=== PATIENT | male | born 1990 | race Caucasian/White ===

== ENCOUNTER 2019-01-11 14:44 | Emergency (ER) | payer SELFPAY ==
[2019-01-11 15:22] LABS: Albumin 4.2 g/dL (3.2-5.2); Albumin/Globulin Ratio 1.2 (1-3); BUN/Creatinine Ratio 13.3 (8-20); Calcium 9.5 mg/dL (8.6-10.3); EGFR Non-African American 122.3 (>60); Globulin 3.5 g/dL (2-4); Potassium 4.1 mmol/L (3.5-5.0); Total Bilirubin 0.7 mg/dL (0.2-1.0); Total Protein 7.7 g/dL (6.4-8.9)
[2019-01-11 15:46] LABS: ABS Lymphocytes 1.1 10^3/ul (1.0-4.8); ABS Monocytes 0.9 10^3/ul (0-0.8); ABS Neutrophils 8.7 10^3/ul (1.5-7.7); Hematocrit 47 % (42-52); Hemoglobin 15.5 g/dL (14.0-18.0); Mean Corpuscular HGB Conc 33 g/dL (31-36); Mean Corpuscular Hemoglobin 21 pg (27-31); Mean Corpuscular Volume 64 fL (80-94); Mean Platelet Volume 8.8 fL (7.4-10.4); Nucleated Red Blood Cells % 0.1; Platelet Count 200 10^3/uL (150-450); Red Blood Count 7.36 10^6 /uL (4.18-5.48); Red Cell Distribution Width 16 % (10-15); White Blood Count 10.8 10^3/uL (3.5-10.8)
[2019-01-11] MEDS ORDERED: NS 0.9% 1000 ML** 1,000 ML IV ONE (18:23)
[2019-01-11] MEDS ORDERED: Insulin REGULAR(*) 1 UNITS UNIT SUBCUT ONE (18:23)
[2019-01-11] MEDS ORDERED: Iohexol 350* (CONTRAST) 500 ML MDV IV ONE (19:57)
--- NOTE | 2019-01-11 20:30 | ED ---
HPI Chest Pain - HPI Summary HPI Summary: 29 year old male presents with chest pain for the past couple days. He also admits to shortness breath. He states has had increased swelling to his right leg. He's noticed a rash on his right leg. He denies any fevers. No abdominal pain. No cough. He admits to a mass in his right inguinal area. He states is diabetic and has not followed up to start meds as he does not currently have a primary. Denies any urinary symptoms. He is not currently taking medication. Does have family history of diabetes. Is a smoker. No recent travel. No family history of blood clots. - History of Current Complaint Chief Complaint: EDGeneral Time Seen by Provider: 01/11/19 18:17 Pain Intensity: 3 - Allergy/Home Medications Allergies/Adverse Reactions: Allergies Allergy/AdvReac Type Severity Reaction Status Date / Time No Known Allergies Allergy Verified 01/11/19 14:53 PMH/Surg Hx/FS Hx/Imm Hx Endocrine/Hematology History: Reports: Hx Diabetes Denies: Hx Anticoagulant Therapy Cardiovascular History: Denies: Hx Hypertension Infectious Disease History: No Infectious Disease History: Denies: Traveled Outside the [place] in Last 30 Days - Family History Known Family History: Negative: Blood Disorder - Social History Alcohol Use: Weekly Substance Use Type: Reports: None Smoking Status (MU): Current Every Day Smoker Review of Systems Negative: Fever Positive: Chest Pain Positive: Shortness Of Breath. Negative: Cough Positive: Edema - right leg Positive: Rash All Other Systems Reviewed And Are Negative: Yes Physical Exam Triage Information Reviewed: Yes Vital Signs On Initial Exam: Initial Vitals Temp Pulse Resp BP Pulse Ox 97.5 F 113 17 140/107 97 01/11/19 14:50 01/11/19 14:50 01/11/19 14:50 01/11/19 14:50 01/11/19 14:50 Vital Signs Reviewed: Yes Appearance: Positive: Well-Appearing Skin: Positive: Warm, Dry, Other - erythematous rash to right leg Head/Face: Positive: Normal Head/Face Inspection Eyes: Positive: Normal, Conjunctiva Clear ENT: Positive: Pharynx normal Respiratory/Lung Sounds: Positive: Clear to Auscultation, Breath Sounds Present Cardiovascular: Positive: Normal, RRR Abdomen Description: Positive: Nontender, Soft Bowel Sounds: Positive: Present Musculoskeletal: Positive: Normal, Strength/ROM Intact - right leg Neurological: Positive: Normal Psychiatric: Positive: Normal Diagnostics - Vital Signs Vital Signs Temp Pulse Resp BP Pulse Ox 01/11/19 16:56 98.6 F 107 18 142/95 98 01/11/19 14:50 97.5 F 113 17 140/107 97 - Laboratory Lab Results: Lab Results 01/11/19 01/11/19 01/11/19 Range/Units 14:59 14:59 14:59 WBC 10.8 (3.5-10.8) 10^3/uL RBC 7.36 H (4.18-5.48) 10^6 /uL Hgb 15.5 (14.0-18.0) g/dL Hct 47 (42-52) % MCV 64 L (80-94) fL MCH 21 L (27-31) pg MCHC 33 (31-36) g/dL RDW 16 H (10-15) % Plt Count 200 (150-450) 10^3/uL MPV 8.8 (7.4-10.4) fL Neut % (Auto) 80.9 % Lymph % (Auto) 10.0 % [place] % (Auto) 8.7 % Eos % (Auto) 0.0 % Baso % (Auto) 0.4 % Absolute Neuts (auto) 8.7 H (1.5-7.7) 10^3/ul Absolute Lymphs (auto) 1.1 (1.0-4.8) 10^3/ul Absolute Monos (auto) 0.9 H (0-0.8) 10^3/ul Absolute Eos (auto) 0.0 (0-0.6) 10^3/ul Absolute Basos (auto) 0.0 (0-0.2) 10^3/ul Absolute Nucleated RBC 0.0 10^3/ul Nucleated RBC % 0.1 Hem Pathologist Commnt Pending D-Dimer, Quantitative (Less Than 230) ng/mL Sodium 127 L (135-145) mmol/L Potassium 4.1 (3.5-5.0) mmol/L Chloride 95 L (101-111) mmol/L Carbon Dioxide 21 L (22-32) mmol/L Anion Gap 11 (2-11) mmol/L BUN 10 (6-24) mg/dL Creatinine 0.75 (0.67-1.17) mg/dL Est GFR ( Amer) 148.0 (>60) Est GFR (Non-Af Amer) 122.3 (>60) BUN/Creatinine Ratio 13.3 (8-20) Glucose 405 H (70-100) mg/dL Lactic Acid 1.3 (0.5-2.0) mmol/L Calcium 9.5 (8.6-10.3) mg/dL Total Bilirubin 0.70 (0.2-1.0) mg/dL AST 19 (13-39) U/L ALT 20 (7-52) U/L Alkaline Phosphatase 69 (34-104) U/L Troponin I 0.00 (<0.04) ng/mL Total Protein 7.7 (6.4-8.9) g/dL Albumin 4.2 (3.2-5.2) g/dL Globulin 3.5 (2-4) g/dL Albumin/Globulin Ratio 1.2 (1-3) 01/11/19 01/11/19 Range/Units 17:41 19:26 WBC (3.5-10.8) 10^3/uL RBC (4.18-5.48) 10^6 /uL Hgb (14.0-18.0) g/dL Hct (42-52) % MCV (80-94) fL MCH (27-31) pg MCHC (31-36) g/dL RDW (10-15) % Plt Count (150-450) 10^3/uL MPV (7.4-10.4) fL Neut % (Auto) % Lymph % (Auto) % [place] % (Auto) % Eos % (Auto) % Baso % (Auto) % Absolute Neuts (auto) (1.5-7.7) 10^3/ul Absolute Lymphs (auto) (1.0-4.8) 10^3/ul Absolute Monos (auto) (0-0.8) 10^3/ul Absolute Eos (auto) (0-0.6) 10^3/ul Absolute Basos (auto) (0-0.2) 10^3/ul Absolute Nucleated RBC 10^3/ul Nucleated RBC % Hem Pathologist Commnt D-Dimer, Quantitative 306 H (Less Than 230) ng/mL Sodium (135-145) mmol/L Potassium (3.5-5.0) mmol/L Chloride (101-111) mmol/L Carbon Dioxide (22-32) mmol/L Anion Gap (2-11) mmol/L BUN (6-24) mg/dL Creatinine (0.67-1.17) mg/dL Est GFR ( Amer) (>60) Est GFR (Non-Af Amer) (>60) BUN/Creatinine Ratio (8-20) Glucose (70-100) mg/dL Lactic Acid (0.5-2.0) mmol/L Calcium (8.6-10.3) mg/dL Total Bilirubin (0.2-1.0) mg/dL AST (13-39) U/L ALT (7-52) U/L Alkaline Phosphatase (34-104) U/L Troponin I 0.00 (<0.04) ng/mL Total Protein (6.4-8.9) g/dL Albumin (3.2-5.2) g/dL Globulin (2-4) g/dL Albumin/Globulin Ratio (1-3) Result Diagrams: 01/11/19 14:59 01/11/19 14:59 Lab Statement: Any lab studies that have been ordered have been reviewed, and results considered in the medical decision making process. - Radiology chest Radiology Interpretation Completed By: Radiologist Summary of Radiographic Findings: IMPRESSION: No active cardiopulmonary disease is noted. - CT cta CT Interpretation Completed By: Radiologist Summary of CT Findings: IMPRESSION: No acute findings. - Ultrasound No standard instances Ultrasound Interpretation Completed By: Radiologist Summary of Ultrasound Findings: IMPRESSION: No acute findings. No evidence of deep vein thrombosis. - EKG No standard instances Cardiac Rate: Tachycardia EKG Rhythm: Sinus Tachycardia Summary of EKG Findings: sinus tachycardia Chest Pain Course/Dx - Course Course Of Treatment: 29 year old male presents with chest pain for the past couple days. He also admits to shortness breath. He states has had increased swelling to his right leg. He's noticed a rash on his right leg. He denies any fevers. No abdominal pain. No cough. He admits to a mass in his right inguinal area. He states is diabetic and has not followed up to start meds as he does not currently have a primary. Denies any urinary symptoms. He is not currently taking medication. Does have family history of diabetes. Is a smoker. No recent travel. No family history of blood clots. On exam is tachycardic. Lungs clear ausculation. Has erythema noted to right leg appears like cellulitis. Will place patient on Keflex for such. Troponinx3 0. D- dimer is elevated. wbc normal. Ultrasound normal except for lymph nodes noted right inguinal area. CTA normal. Glucose is elevated. Gave dosed insulin and fluids glucose came down to 320 and then patient ate. Will place patient on metformin for diabetes. Told these establish care with primary. Patient understands and agrees with plan. - Chest Pain Differential Diagnosis/HQI/PQRI: Angina, Chest Wall, Pulmonary Embolism - Diagnoses Provider Diagnoses: Cellulitis of right leg, Diabetes, Shortness of breath Discharge - Sign-Out/Discharge Documenting (check all that apply): Patient Departure Patient Received Moderate/Deep Sedation with Procedure: No - Discharge Plan Condition: Good Disposition: HOME Prescriptions: Cephalexin CAP* [Keflex CAP*] 500 mg PO TID #29 cap metFORMIN* [Glucophage 500 MG TAB *] 500 mg PO BID #60 tab Patient Education Materials: Cellulitis (ED) Referrals: [facility] [Outside] Additional Instructions: Take Keflex three times a day for 10 days, first dose given in ED take metformin once a day for 3 days, then increase to twice a day [facility] with [facility] leg Return to ED if develop fever, area of redness spreads, or any new or worsening symptoms - Billing Disposition and Condition Condition: GOOD Disposition: Home
[2019-01-11] MEDS ORDERED: metFORMIN* 500 MG TAB PO ONE (22:00)
[2019-01-11] MEDS ORDERED: Cephalexin CAP* 500 MG PO ONE (22:00)
[2019-01-11 22:30] VITALS: BP 128/73
== END 2019-01-11 22:27 | disposition home or self-care (01) ==
LOC: ED 14:44
DX: L03.115 Cellulitis of right lower limb (principal); R06.02 Shortness of breath; E11.9 Type 2 diabetes mellitus without complications; F17.210 Nicotine dependence, cigarettes, uncomplicated
CPT/HCPCS: 36415; 71045; 71275; 80053; 83036; 83605; 84484; 85025; 85060; 85379; 93005; 96360; 96361; 99283; A9270-GY; Q9967

== ENCOUNTER 2021-01-23 13:20 | Observation (INO) ==
[2021-01-23 17:36] LABS: ABS Basophils 0.1 10^3/ul (0-0.2); ABS Eosinophils 0.2 10^3/ul (0-0.6); ABS Lymphocytes 1.8 10^3/ul (1.0-4.8); ABS Monocytes 0.7 10^3/ul (0-0.8); ABS Neutrophils 7.3 10^3/ul (1.5-7.7); Hematocrit 43 % (42-52); Hemoglobin 14.1 g/dL (14.0-18.0); Mean Corpuscular HGB Conc 33 g/dL (31-36); Mean Corpuscular Hemoglobin 22 pg (27-31); Mean Corpuscular Volume 66 fL (80-94); Mean Platelet Volume 8.2 fL (7.4-10.4); Nucleated Red Blood Cells % 0.1; Platelet Count 290 10^3/uL (150-450); Red Blood Count 6.44 10^6 /uL (4.18-5.48); Red Cell Distribution Width 16 % (10-15); White Blood Count 10.1 10^3/uL (3.5-10.8)
[2021-01-23 17:45] LABS: Albumin 4.3 g/dL (3.2-5.2); Albumin/Globulin Ratio 1.2 (1-3); C Reactive Protein 100.37 mg/L (<8.01); EGFR African American 155.6 (>60); EGFR Non-African American 128.6 (>60); Globulin 3.6 g/dL (2-4); Potassium 4.6 mmol/L (3.5-5.0); Total Bilirubin 0.9 mg/dL (0.2-1.0); Total Protein 7.9 g/dL (6.4-8.9)
[2021-01-23 18:38] LABS: Basophilic Stippling 1+; Hypochromasia 2+; Microcytosis 3+; Polychromasia 1+
[2021-01-23 18:39] LABS: Stomatocytes 1+
[2021-01-23] MEDS ORDERED: Tetan/Diph/Pertus SYR(Tdap) 0.5 ML SYR(BOOSTRIX) use SYR contains LATEX IM ONE (19:05)
[2021-01-23 20:10] LABS: Urine Appearance Clear; Urine Bilirubin Negative (Negative); Urine Blood Negative (Negative); Urine Color Yellow; Urine Glucose 3+(>=500 mg/dL) (Negative); Urine Ketones Negative (Negative); Urine Nitrite Negative (Negative); Urine Protein Negative (Negative); Urine Specific Gravity 1.045 (1.002-1.030); Urine Urobilinogen Negative (Negative)
[2021-01-23] MEDS ORDERED: Iodixanol (CONTRAST) 320 MG/ML 100 ML SDV IV ONE (22:49)
[2021-01-23 23:58] LABS: Rapid COVID-19 Molecular Undetected (Undetected)
[2021-01-24] MEDS ORDERED: Insulin GLARGINE 100 un/ml 10 ml VIAL SUBCUT ONE (01:14)
[2021-01-24] MEDS: NS 0.9% 1000 ml BAG 1,000 ML IV SCH ×2 (01:49→01:50)
[2021-01-24] MEDS ORDERED: Heparin 5000 UNITS/ML 1 mL VIAL SUBCUT SCH (06:00)
[2021-01-24 06:20] LABS: Hematocrit 36 % (42-52); Hemoglobin 11.7 g/dL (14.0-18.0); Mean Corpuscular HGB Conc 32 g/dL (31-36); Mean Corpuscular Hemoglobin 22 pg (27-31); Mean Corpuscular Volume 67 fL (80-94); Mean Platelet Volume 8.4 fL (7.4-10.4); Platelet Count 259 10^3/uL (150-450); Red Blood Count 5.46 10^6 /uL (4.18-5.48); Red Cell Distribution Width 16 % (10-15); White Blood Count 7.9 10^3/uL (3.5-10.8)
[2021-01-24 06:24] LABS: Calcium 8.4 mg/dL (8.6-10.3); EGFR African American 158.1 (>60); EGFR Non-African American 130.7 (>60); HDL Cholesterol 25.3 mg/dL; Potassium 3.5 mmol/L (3.5-5.0)
[2021-01-24 07:46] LABS: Erythrocyte Sed Rate 18 mm/Hr (0-14)
[2021-01-24] MEDS ORDERED: Potassium Chlor 20 meq TAB.ER PO ONE (10:50)
[2021-01-24] MEDS ORDERED: Vancomycin per Pharmacy 1 EA NOTE FOLLOW UP SCH (12:00)
[2021-01-24] MEDS ORDERED: Vancomycin 2,000 MG in NS 0.9% 500 ml BAG 500 ML IVPB ONE (12:30)
[2021-01-24] MEDS ORDERED: Vancomycin 1000 MG in NS 0.9% 250 ML IVPB SCH (18:00)
[2021-01-24 18:26] VITALS: BP 136/63
[2021-01-24] MEDS ORDERED: Insulin GLARGINE 100 un/ml 10 ml VIAL SUBCUT SCH (21:00)
[2021-01-24] MEDS ORDERED: Enoxaparin 40 MG/0.4 ML SYR SUBCUT SCH (21:00)
[2021-01-25] MEDS ORDERED: Vancomycin Trough Check NOTE FOLLOW UP ONE (05:30)
== END 2021-01-24 20:50 | disposition left against medical advice (07) ==
LOC: MEDTELE 13:20 → ED 13:20 → MEDTELE 01-24 04:31
PROVIDERS: ADMIT Internal Medicine; ATTEND Student in an Organized Health Care Education/Training Program

== ENCOUNTER 2021-01-29 21:46 | Inpatient (IN) ==
[2021-01-30 00:51] LABS: ABS Basophils 0.1 10^3/ul (0-0.2); ABS Eosinophils 0.2 10^3/ul (0-0.6); ABS Monocytes 0.8 10^3/ul (0-0.8); ABS Neutrophils 5.5 10^3/ul (1.5-7.7); Eosinophil % 1.8 %; Hematocrit 38 % (42-52); Hemoglobin 12.5 g/dL (14.0-18.0); Lymphocyte % 23.3 %; Mean Corpuscular HGB Conc 33 g/dL (31-36); Mean Corpuscular Hemoglobin 22 pg (27-31); Mean Corpuscular Volume 66 fL (80-94); Mean Platelet Volume 8.1 fL (7.4-10.4); Nucleated Red Blood Cells % 0.1; Platelet Count 332 10^3/uL (150-450); Red Blood Count 5.74 10^6 /uL (4.18-5.48); Red Cell Distribution Width 16 % (10-15); White Blood Count 8.5 10^3/uL (3.5-10.8)
[2021-01-30 01:02] LABS: Albumin/Globulin Ratio 1.3 (1-3); Calcium 9.1 mg/dL (8.6-10.3); EGFR African American 148.3 (>60); EGFR Non-African American 122.6 (>60); Globulin 3.2 g/dL (2-4); Potassium 4.3 mmol/L (3.5-5.0); Total Bilirubin 0.4 mg/dL (0.2-1.0); Total Protein 7.2 g/dL (6.4-8.9)
[2021-01-30] MEDS ORDERED: Vancomycin 1,000 MG in NS 0.9% 250 ml 250 ML IVPB ONE (03:29)
[2021-01-30] MEDS ORDERED: Vancomycin 1500 MG IV - x ONCE IVPB ONE (04:00)
[2021-01-30] MEDS ORDERED: Vancomycin per Pharmacy 1 EA NOTE FOLLOW UP SCH (04:00)
[2021-01-30] MEDS ORDERED: Dextrose 50% Syringe 50 ml 25 GM/50 ML SYRINGE IV PUSH PRN ×3 (07:13→14:34)
[2021-01-30] MEDS ORDERED: Insulin GLARGINE 100 un/ml 10 ml VIAL SUBCUT ONE (12:24)
[2021-01-30 12:39] LABS: C Reactive Protein 13.49 mg/L (<8.01)
[2021-01-30] MEDS: Vancomycin 1,250 MG in NS 0.9% 250 ml 250 ML IVPB SCH ×2 (14:15→20:11)
[2021-01-30] MEDS: Nicotine GUM 4MG FRUIT FLAVOR PO PRN ×2 (16:50→18:52)
[2021-01-30] MEDS: Nicotine PATCH 21 MG/24 HR PATCH TRANSDERM SCH (16:51)
[2021-01-30] MEDS ORDERED: Insulin GLARGINE 100 un/ml 10 ml VIAL SUBCUT SCH (22:00)
[2021-01-31] MEDS: Vancomycin 1,250 MG in NS 0.9% 250 ml 250 ML IVPB SCH ×2 (04:43→12:36)
[2021-01-31 07:05] LABS: ABS Basophils 0.1 10^3/ul (0-0.2); ABS Eosinophils 0.2 10^3/ul (0-0.6); ABS Lymphocytes 2.5 10^3/ul (1.0-4.8); ABS Monocytes 0.7 10^3/ul (0-0.8); ABS Neutrophils 5.6 10^3/ul (1.5-7.7); Hematocrit 38 % (42-52); Hemoglobin 12.2 g/dL (14.0-18.0); Lymphocyte % 27.3 %; Mean Corpuscular HGB Conc 32 g/dL (31-36); Mean Corpuscular Hemoglobin 22 pg (27-31); Mean Corpuscular Volume 67 fL (80-94); Mean Platelet Volume 8.1 fL (7.4-10.4); Nucleated Red Blood Cells % 0.1; Platelet Count 337 10^3/uL (150-450); Red Blood Count 5.66 10^6 /uL (4.18-5.48); Red Cell Distribution Width 16 % (10-15)
[2021-01-31 07:17] LABS: Calcium 8.4 mg/dL (8.6-10.3); EGFR African American 178.6 (>60); EGFR Non-African American 147.6 (>60); Potassium 4.2 mmol/L (3.5-5.0)
[2021-01-31] MEDS: Nicotine PATCH 21 MG/24 HR PATCH TRANSDERM SCH (07:45)
[2021-01-31] MEDS ORDERED: Insulin GLARGINE 100 un/ml 10 ml VIAL SUBCUT SCH ×2 (09:00→21:00)
[2021-01-31] MEDS ORDERED: Dextrose 50% Syringe 50 ml 25 GM/50 ML SYRINGE IV PUSH PRN (10:29)
[2021-01-31] MEDS ORDERED: Vancomycin Trough Check NOTE FOLLOW UP ONE (11:30)
[2021-01-31 16:24] VITALS: BP 150/96
== END 2021-01-31 18:20 | disposition home or self-care (01) | DRG 344 ==
LOC: ED 21:46 → SSU 01-30 03:58
PROVIDERS: ADMIT Internal Medicine; ATTEND Hospitalist

== ENCOUNTER 2022-08-21 13:04 | Observation (INO) ==
[2022-08-21] MEDS ORDERED: Lactated Ringers 1000 ml BAG 1,000 ML IV ONE ×2 (13:17→19:00)
[2022-08-21 14:20] LABS: Hematocrit 34 % (42-52); Hemoglobin 10.9 g/dL (14.0-18.0); Mean Corpuscular HGB Conc 32 g/dL (31-36); Mean Corpuscular Hemoglobin 19 pg (27-31); Mean Corpuscular Volume 60 fL (80-94); Mean Platelet Volume 8.8 fL (7.4-10.4); Platelet Count 237 10^3/uL (150-450); Red Blood Count 5.61 10^6 /uL (4.18-5.48); Red Cell Distribution Width 16 % (10-15); White Blood Count 15.5 10^3/uL (3.5-10.8)
[2022-08-21 14:52] LABS: ABS Monocytes 1.2 10^3/ul (0-0.8); ABS Neutrophils 13.2 10^3/ul (1.5-7.7); Lymphocyte % 6.6 %
[2022-08-21 14:53] LABS: Albumin 3.3 g/dL (3.2-5.2); Albumin/Globulin Ratio 0.9 (1-3); C Reactive Protein 214.94 mg/L (<8.01); Calcium 8.3 mg/dL (8.6-10.3); Creatinine, Serum 0.66 mg/dL (0.67-1.17); Globulin 3.5 g/dL (2-4); Total Bilirubin 1.1 mg/dL (0.2-1.0); Total Protein 6.8 g/dL (6.4-8.9)
[2022-08-21] MEDS ORDERED: Potassium EFFERVES 25 meq TAB PO ONE (15:02)
[2022-08-21] MEDS ORDERED: Cefepime 2 GM in Dextrose 2 GM/50 ML BAG IV ONE (15:08)
[2022-08-21] MEDS ORDERED: metroNIDAZOLE IV 500 MG/100ML 500 MG/100 ML BAG IVPB ONE (15:08)
[2022-08-21] MEDS: Lactated Ringers 1000 ml BAG 1,000 ML IV SCH ×3 (15:32→18:00)
[2022-08-21] MEDS ORDERED: Vancomycin 2,000 MG in NS 0.9% 250 ml 250 ML IVPB ONE (16:00)
[2022-08-21] MEDS ORDERED: Morphine 2 MG/ML SYRINGE IV ONE (16:02)
[2022-08-21] MEDS ORDERED: Polyethylene Glycol 3350 17 GM PACKET PO PRN (16:36)
[2022-08-21] MEDS ORDERED: Dextrose 50% Syringe 50 ml 25 GM/50 ML SYRINGE IV PUSH PRN (16:40)
[2022-08-21] MEDS ORDERED: Vancomycin 2,000 MG in NS 0.9% 500 ml BAG 500 ML IVPB ONE (17:00)
[2022-08-21] MEDS ORDERED: Vancomycin per Pharmacy 1 EA NOTE FOLLOW UP SCH (18:00)
[2022-08-21 18:37] LABS: Urine Appearance Cloudy; Urine Bilirubin Negative (Negative); Urine Blood 3+ (Negative); Urine Color Amber; Urine Glucose Negative (Negative); Urine Ketones Negative (Negative); Urine Nitrite Negative (Negative); Urine Protein 1+(30 mg/dL) (Negative); Urine Specific Gravity 1.012 (1.002-1.030); Urine Urobilinogen Positive (Negative)
[2022-08-21 18:54] LABS: Urine Bacteria Absent (Absent); Urine Red Blood Cell 3+(>10/hpf) (Absent); Urine Sperm Present (Absent); Urine White Blood Cell 2+(11-20/hpf) (Absent)
[2022-08-21 19:03] LABS: Urine Yeast Absent (Absent)
[2022-08-21] MEDS: Insulin GLARGINE 100 un/ml 10 ml VIAL SUBCUT SCH (21:16)
[2022-08-21] MEDS: Enoxaparin 40 MG/0.4 ML SYR SUBCUT SCH (21:16)
[2022-08-21] MEDS ORDERED: Heparin 5000 UNITS/ML 1 mL VIAL SUBCUT SCH (22:00)
[2022-08-22] MEDS: metroNIDAZOLE IV 500 MG/100ML 500 MG/100 ML BAG IVPB SCH ×2 (00:44→08:51)
[2022-08-22] MEDS ORDERED: Cefepime 2 GM in Dextrose 2 GM/50 ML BAG IV SCH (04:00)
[2022-08-22] MEDS ORDERED: Vancomycin 1,250 MG in NS 0.9% 250 ml 250 ML IVPB SCH (05:00)
[2022-08-22 06:59] LABS: ABS Lymphocytes 0.9 10^3/ul (1.0-4.8); ABS Neutrophils 16.2 10^3/ul (1.5-7.7); Hematocrit 30 % (42-52); Hemoglobin 9.5 g/dL (14.0-18.0); Lymphocyte % 5.1 %; Mean Corpuscular HGB Conc 32 g/dL (31-36); Mean Corpuscular Hemoglobin 19 pg (27-31); Mean Corpuscular Volume 60 fL (80-94); Mean Platelet Volume 9.1 fL (7.4-10.4); Nucleated Red Blood Cells % 0.1; Platelet Count 219 10^3/uL (150-450); Red Blood Count 4.97 10^6 /uL (4.18-5.48); Red Cell Distribution Width 16 % (10-15); White Blood Count 18.1 10^3/uL (3.5-10.8)
[2022-08-22 07:13] LABS: Anion Gap 5 mmol/L (2-11); Blood Urea Nitrogen 7 mg/dL (6-24); C Reactive Protein 267.21 mg/L (<8.01); CO2 Carbon Dioxide 31 mmol/L (22-32); Calcium 7.7 mg/dL (8.6-10.3); Chloride 91 mmol/L (101-111); Creatinine, Serum 0.63 mg/dL (0.67-1.17); Glucose 106 mg/dL (70-100); Magnesium 1.5 mg/dL (1.9-2.7); Potassium 2.9 mmol/L (3.5-5.0); Sodium 127 mmol/L (135-145); Total Iron Binding Capacity 185 mcg/dL (250-450); Transferrin 132 mg/dL (203-362); eGFR CKD-EPI 128.8 (>60)
[2022-08-22 07:23] LABS: % Iron Saturation 11 % (15-55); Iron < 20 ug/dL (50-212); Unsaturated Iron Binding 165 ug/dL
[2022-08-22 07:28] LABS: Ferritin 970.2 ng/mL (24-336)
[2022-08-22] MEDS ORDERED: Magnesium Sulfate 2 gm BAG 2 GM/50 ML BAG IVPB ONE (08:18)
[2022-08-22] MEDS: Nicotine PATCH 21 MG/24 HR PATCH TRANSDERM SCH (08:40)
[2022-08-22] MEDS: Potassium Chlor 20 meq TAB.ER PO SCH ×2 (11:59→13:30)
[2022-08-22] MEDS ORDERED: Acetaminophen IV 1 GM/100ML 1,000 MG/100 ML BAG IV ONE (14:22)
[2022-08-22 14:45] LABS: Urine Osmo 148 mOsm/kg (150-1150)
[2022-08-22] MEDS ORDERED: cefTRIAXone 2 gm/50 mL D5W 2 GM/50 ML BAG IV SCH (15:00)
[2022-08-22] MEDS: Enoxaparin 40 MG/0.4 ML SYR SUBCUT SCH (20:20)
[2022-08-22] MEDS: Insulin GLARGINE 100 un/ml 10 ml VIAL SUBCUT SCH (20:20)
[2022-08-23] MEDS ORDERED: Vancomycin Trough Check NOTE FOLLOW UP ONE (04:30)
[2022-08-23 07:13] LABS: Creatinine, Serum 0.62 mg/dL (0.67-1.17); Potassium 3.5 mmol/L (3.5-5.0); eGFR CKD-EPI 129.4 (>60)
[2022-08-23 07:30] LABS: ABS Lymphocytes 1.3 10^3/ul (1.0-4.8); ABS Monocytes 0.9 10^3/ul (0-0.8); ABS Neutrophils 11.6 10^3/ul (1.5-7.7); Hematocrit 31 % (42-52); Lymphocyte % 9.6 %; Mean Corpuscular HGB Conc 33 g/dL (31-36); Mean Corpuscular Hemoglobin 20 pg (27-31); Mean Corpuscular Volume 61 fL (80-94); Mean Platelet Volume 8.7 fL (7.4-10.4); Platelet Count 239 10^3/uL (150-450); Red Blood Count 5.03 10^6 /uL (4.18-5.48); Red Cell Distribution Width 17 % (10-15); White Blood Count 13.9 10^3/uL (3.5-10.8)
[2022-08-23] MEDS ORDERED: Potassium Chlor 20 meq TAB.ER PO ONE (08:05)
[2022-08-23 08:42] LABS: Osmolality Serum 287 mOsm/kg (275-295)
[2022-08-23] MEDS: Nicotine PATCH 21 MG/24 HR PATCH TRANSDERM SCH (08:53)
[2022-08-23] MEDS ORDERED: cefTRIAXone 2 gm/50 mL D5W 2 GM/50 ML BAG IV SCH (12:00)
[2022-08-23 12:30] LABS: Magnesium 2.2 mg/dL (1.9-2.7)
[2022-08-23 13:32] VITALS: BP 148/84
[2022-08-23 15:30] LABS: High Sensitivity Troponin 1 Hr 8 pg/mL (<20)
== END 2022-08-23 16:45 | disposition home or self-care (01) ==
LOC: ED 13:04 → EDHOLD 13:04 → MED 16:30
PROVIDERS: ADMIT Internal Medicine; ATTEND Internal Medicine

== ENCOUNTER 2023-03-26 15:56 | Inpatient (IN) ==
[2023-03-26 22:30] LABS: Hemoglobin 5.7 g/dL (13.2-16.3)
[2023-03-26 22:32] LABS: ABS Basophils 0.1 10^3/uL (0.0-0.1); ABS Eosinophils 0.2 10^3/uL (0.0-0.5); ABS Lymphocytes 1.5 10^3/uL (1.0-4.8); ABS Neutrophils 16.2 10^3/uL (1.5-7.6); ABS Nucleated RBC 0.01 10^3/ul; Eosinophil % 0.9 %; Hematocrit 17.6 % (38-53); Lymphocyte % 7.9 %; Mean Corpuscular Hemoglobin 18.5 pg (27-33); Mean Corpuscular Hgb Conc 32.6 g/dL (31-36); Mean Corpuscular Volume 56.7 fL (80-97); Mean Platelet Volume 8.2 fL (7.5-11.2); Platelet Count 392 10^3/uL (150-450); Red Cell Distribution Width 18.1 % (12-17)
[2023-03-26 22:35] LABS: Albumin 2.2 g/dL (3.2-5.2); Calcium 7.9 mg/dL (8.6-10.3); Potassium 3.7 mmol/L (3.5-5.0); Total Bilirubin 0.3 mg/dL (0.2-1.0)
[2023-03-26 22:41] LABS: Albumin/Globulin Ratio 0.4 (1-3); C Reactive Protein 187.44 mg/L (<8.01); Creatinine, Serum 1.01 mg/dL (0.67-1.17); Globulin 5.9 g/dL (2-4); Total Protein 8.1 g/dL (6.4-8.9); eGFR CKD-EPI 100.1 (>60)
[2023-03-26 23:30] LABS: Hematocrit 18.6 % (38-53); Hemoglobin 6.1 g/dL (13.2-16.3)
[2023-03-26] MEDS ORDERED: Dextrose 50% Syringe 50 ml 25 GM/50 ML SYRINGE IV PUSH PRN (23:41)
[2023-03-26] MEDS ORDERED: Vancomycin per Pharmacy 1 EA NOTE FOLLOW UP SCH (23:45)
[2023-03-27] MEDS ORDERED: Vancomycin 2,000 MG in NS 0.9% 500 ml BAG 500 ML IVPB ONE (01:00)
[2023-03-27] MEDS: Cefepime 2 GM in Dextrose 2 GM/50 ML BAG IV SCH ×3 (01:06→21:56)
[2023-03-27] MEDS ORDERED: Lactated Ringers 1000 ml BAG 1,000 ML IV ONE (01:24)
[2023-03-27 01:53] LABS: % Iron Saturation 15 % (15-55); .Transferrin 97 mg/dL (203-362); Iron < 20 ug/dL (50-212); Total Iron Binding Capacity 136 mcg/dL (250-450); Transferrin 97 mg/dL (203-362); Unsaturated Iron Binding 116 ug/dL
[2023-03-27 02:07] LABS: Ferritin 326.8 ng/mL (24-336)
[2023-03-27 07:15] LABS: Urine Appearance Clear; Urine Bilirubin Negative (Negative); Urine Blood 2+ (Negative); Urine Color Yellow; Urine Glucose Negative (Negative); Urine Ketones Negative (Negative); Urine Nitrite Negative (Negative); Urine Protein Negative (Negative); Urine Specific Gravity 1.011 (1.002-1.030); Urine Urobilinogen Negative (Negative)
[2023-03-27 07:18] LABS: Urine Bacteria Absent (Absent); Urine Red Blood Cell Trace(0-2/hpf) (Absent); Urine Squamous Epithelial Cell Present (Absent); Urine White Blood Cell 1+(6-10/hpf) (Absent)
[2023-03-27 08:48] LABS: C Reactive Protein 196.12 mg/L (<8.01); Calcium 8.3 mg/dL (8.6-10.3); Creatinine, Serum 0.9 mg/dL (0.67-1.17); Potassium 3.8 mmol/L (3.5-5.0); eGFR CKD-EPI 114.9 (>60)
[2023-03-27 09:26] LABS: Hematocrit 19.9 % (38-53); Hemoglobin 6.3 g/dL (13.2-16.3); Mean Corpuscular Hemoglobin 19.1 pg (27-33); Mean Corpuscular Hgb Conc 31.9 g/dL (31-36); Mean Corpuscular Volume 59.9 fL (80-97); Mean Platelet Volume 8.3 fL (7.5-11.2); Platelet Count 387 10^3/uL (150-450); Red Blood Count 3.32 10^6/uL (4.06-5.63); Red Cell Distribution Width 19.4 % (12-17); White Blood Count 14.9 10^3/uL (3.6-10.2)
[2023-03-27 09:29] LABS: ABS Basophils 0.1 10^3/uL (0.0-0.1); ABS Eosinophils 0.3 10^3/uL (0.0-0.5); ABS Lymphocytes 1.6 10^3/uL (1.0-4.8); Eosinophil % 1.9 %; Lymphocyte % 10.8 %
[2023-03-27] MEDS: Nicotine PATCH 21 MG/24 HR PATCH TRANSDERM SCH ×2 (12:49→20:55)
[2023-03-27] MEDS ORDERED: Iodixanol (CONTRAST) 320 MG/ML 100 ML SDV IV ONE (14:05)
[2023-03-27 15:43] LABS: Urine Benzodiazepine Screen None Detected (None Detect); Urine Cannabinoids Screen Presumptive Positive (None Detect); Urine Opiates Screen Presumptive Positive (None Detect)
[2023-03-27] MEDS: Vancomycin 1,750 MG in NS 0.9% 500 ml BAG 500 ML IVPB SCH (17:09)
[2023-03-27 20:30] LABS: ABS Basophils 0.1 10^3/uL (0.0-0.1); ABS Eosinophils 0.4 10^3/uL (0.0-0.5); ABS Lymphocytes 1.4 10^3/uL (1.0-4.8); ABS Monocytes 0.9 10^3/uL (0.0-1.1); ABS Neutrophils 12.2 10^3/uL (1.5-7.6); ABS Nucleated RBC 0.01 10^3/ul; Eosinophil % 2.5 %; Hemoglobin 7.9 g/dL (13.2-16.3); Lymphocyte % 9.2 %; Mean Corpuscular Hemoglobin 19.9 pg (27-33); Mean Corpuscular Hgb Conc 32.7 g/dL (31-36); Mean Corpuscular Volume 60.7 fL (80-97); Mean Platelet Volume 8.6 fL (7.5-11.2); Platelet Count 493 10^3/uL (150-450); Red Blood Count 3.96 10^6/uL (4.06-5.63); White Blood Count 14.9 10^3/uL (3.6-10.2)
[2023-03-28] MEDS: Vancomycin 1,750 MG in NS 0.9% 500 ml BAG 500 ML IVPB SCH ×2 (04:53→18:24)
[2023-03-28] MEDS: Cefepime 2 GM in Dextrose 2 GM/50 ML BAG IV SCH ×5 (06:32→22:45)
[2023-03-28] MEDS ORDERED: Ondansetron 4 mg VIAL 2 MG/ML 2 ml VIAL ONE (07:01)
[2023-03-28] MEDS: Ondansetron 4 mg VIAL 2 MG/ML 2 ml VIAL IV PRN (07:04)
[2023-03-28 07:33] LABS: ABS Basophils 0.1 10^3/uL (0.0-0.1); ABS Eosinophils 0.3 10^3/uL (0.0-0.5); ABS Lymphocytes 1.2 10^3/uL (1.0-4.8); ABS Monocytes 0.7 10^3/uL (0.0-1.1); ABS Neutrophils 10.2 10^3/uL (1.5-7.6); Eosinophil % 2.7 %; Hematocrit 23.5 % (38-53); Hemoglobin 7.7 g/dL (13.2-16.3); Lymphocyte % 9.6 %; Mean Corpuscular Hemoglobin 19.8 pg (27-33); Mean Corpuscular Hgb Conc 32.7 g/dL (31-36); Mean Corpuscular Volume 60.5 fL (80-97); Mean Platelet Volume 8.3 fL (7.5-11.2); Platelet Count 465 10^3/uL (150-450); Red Blood Count 3.88 10^6/uL (4.06-5.63); White Blood Count 12.5 10^3/uL (3.6-10.2)
[2023-03-28 07:44] LABS: Calcium 8.1 mg/dL (8.6-10.3); Potassium 4.2 mmol/L (3.5-5.0)
[2023-03-28 07:49] LABS: Creatinine, Serum 0.74 mg/dL (0.67-1.17); eGFR CKD-EPI 121.9 (>60)
[2023-03-28] MEDS: Nicotine PATCH 21 MG/24 HR PATCH TRANSDERM SCH (09:04)
[2023-03-28] MEDS ORDERED: Vancomycin Trough Check NOTE FOLLOW UP ONE (16:30)
[2023-03-28] MEDS ORDERED: Enoxaparin 40 MG/0.4 ML SYR SUBCUT ONE (16:38)
[2023-03-28 17:42] LABS: Creatinine, Serum 0.83 mg/dL (0.67-1.17); eGFR CKD-EPI 117.8 (>60)
[2023-03-28 17:47] LABS: Vancomycin Trough 14.9 mcg/mL
[2023-03-29] MEDS: Vancomycin 1,750 MG in NS 0.9% 500 ml BAG 500 ML IVPB SCH ×2 (05:30→18:55)
[2023-03-29] MEDS: Ondansetron 4 mg VIAL 2 MG/ML 2 ml VIAL IV PRN (05:35)
[2023-03-29 06:34] LABS: Albumin/Globulin Ratio 0.4 (1-3); Creatinine, Serum 0.83 mg/dL (0.67-1.17); Globulin 5.6 g/dL (2-4); Potassium 4.2 mmol/L (3.5-5.0); Total Bilirubin 0.4 mg/dL (0.2-1.0); Total Protein 7.6 g/dL (6.4-8.9); eGFR CKD-EPI 117.8 (>60)
[2023-03-29] MEDS: Nicotine PATCH 21 MG/24 HR PATCH TRANSDERM SCH (08:14)
[2023-03-29] MEDS: Cefepime 2 GM in Dextrose 2 GM/50 ML BAG IV SCH ×3 (08:22→22:31)
[2023-03-29 10:09] LABS: ABS Eosinophils 0.2 10^3/uL (0.0-0.5); ABS Monocytes 0.6 10^3/uL (0.0-1.1); ABS Neutrophils 9.1 10^3/uL (1.5-7.6); Hematocrit 21.6 % (38-53); Mean Corpuscular Hemoglobin 19.4 pg (27-33); Mean Corpuscular Hgb Conc 32.3 g/dL (31-36); Mean Corpuscular Volume 60.2 fL (80-97); Mean Platelet Volume 8.4 fL (7.5-11.2); Platelet Count 485 10^3/uL (150-450); Red Blood Count 3.59 10^6/uL (4.06-5.63); Red Cell Distribution Width 20.4 % (12-17)
[2023-03-29 10:10] LABS: ABS Nucleated RBC 0.01 10^3/ul; Eosinophil % 2.1 %; Lymphocyte % 9.3 %; Nucleated Red Blood Cells % 0.1 /100 WBC (0.0-0.4)
[2023-03-29 10:22] LABS: INR 1.42 (0.83-1.13)
[2023-03-29] MEDS ORDERED: Acetaminophen IV 1 GM/100ML 1,000 MG/100 ML BAG IV ONE ×2 (13:04→17:16)
[2023-03-29] MEDS ORDERED: fentaNYL 100 mcg/2 ml 50 MCG/ML VIAL ONE (15:34)
[2023-03-29] MEDS ORDERED: Midazolam 2 mg/2 ml VIAL 1 mg/ml 2 ml VIAL (2 mg) ONE (15:34)
[2023-03-29] MEDS ORDERED: Lidocaine 2% PF 5 ML VIAL ONE (15:34)
[2023-03-29] MEDS ORDERED: Rocuronium 50 mg VIAL 10 mg/ml 5 ml VIAL (50 mg) ONE (15:34)
[2023-03-29] MEDS ORDERED: Propofol 10 MG/ML 20 ML BTL ONE (15:34)
[2023-03-29] MEDS ORDERED: Ondansetron 4 mg VIAL 2 MG/ML 2 ml VIAL ONE (15:34)
[2023-03-29] MEDS ORDERED: Dexamethasone IV 4 MG/ML VIAL 1 ml VIAL ONE (15:34)
[2023-03-29] MEDS ORDERED: ceFAZolin VIAL VIAL ONE (16:29)
[2023-03-29] MEDS ORDERED: Sugammadex 500 MG/5 ML 5 ml VIAL IV PUSH ONE (17:31)
[2023-03-29] MEDS ORDERED: HYDROmorphone 0.5 MG/0.5 ML SYRINGE ONE (17:41)
[2023-03-29] MEDS ORDERED: Naloxone 0.4 mg VIAL 0.4 mg/ml 1 ml VIAL IV PRN (17:49)
[2023-03-29] MEDS ORDERED: Ondansetron 4 mg VIAL 2 MG/ML 2 ml VIAL IV PRN (17:49)
[2023-03-29] MEDS ORDERED: HYDROmorphone 1 MG/1 ML SYRINGE ONE (18:02)
[2023-03-29] MEDS: HYDROmorphone 1 MG/1 ML SYRINGE IV PRN ×3 (18:12→18:33)
[2023-03-29 23:09] LABS: ABS Basophils 0.1 10^3/uL (0.0-0.1); ABS Lymphocytes 0.9 10^3/uL (1.0-4.8); ABS Monocytes 0.5 10^3/uL (0.0-1.1); ABS Neutrophils 11.5 10^3/uL (1.5-7.6); ABS Nucleated RBC 0.02 10^3/ul; Eosinophil % 0.2 %; Hematocrit 26.4 % (38-53); Hemoglobin 8.5 g/dL (13.2-16.3); Lymphocyte % 6.6 %; Mean Corpuscular Hemoglobin 20.4 pg (27-33); Mean Corpuscular Hgb Conc 32.3 g/dL (31-36); Mean Corpuscular Volume 63.2 fL (80-97); Mean Platelet Volume 8.2 fL (7.5-11.2); Nucleated Red Blood Cells % 0.1 /100 WBC (0.0-0.4); Platelet Count 524 10^3/uL (150-450); Red Blood Count 4.17 10^6/uL (4.06-5.63); Red Cell Distribution Width 24.1 % (12-17); White Blood Count 12.9 10^3/uL (3.6-10.2)
[2023-03-30] MEDS: Cefepime 2 GM in Dextrose 2 GM/50 ML BAG IV SCH ×3 (05:33→22:15)
[2023-03-30] MEDS: Vancomycin 1,750 MG in NS 0.9% 500 ml BAG 500 ML IVPB SCH (06:19)
[2023-03-30 07:49] LABS: ABS Basophils 0.1 10^3/uL (0.0-0.1); ABS Eosinophils 0.1 10^3/uL (0.0-0.5); ABS Lymphocytes 1.5 10^3/uL (1.0-4.8); ABS Monocytes 0.8 10^3/uL (0.0-1.1); ABS Neutrophils 12.5 10^3/uL (1.5-7.6); ABS Nucleated RBC 0.01 10^3/ul; Eosinophil % 0.4 %; Hematocrit 25.9 % (38-53); Hemoglobin 8.4 g/dL (13.2-16.3); Lymphocyte % 10.1 %; Mean Corpuscular Hemoglobin 20.2 pg (27-33); Mean Corpuscular Hgb Conc 32.5 g/dL (31-36); Mean Platelet Volume 8.2 fL (7.5-11.2); Platelet Count 489 10^3/uL (150-450); Red Blood Count 4.18 10^6/uL (4.06-5.63); Red Cell Distribution Width 24.1 % (12-17); White Blood Count 14.9 10^3/uL (3.6-10.2)
[2023-03-30 07:59] LABS: Calcium 7.8 mg/dL (8.6-10.3); Creatinine, Serum 0.89 mg/dL (0.67-1.17); Potassium 4.4 mmol/L (3.5-5.0); eGFR CKD-EPI 115.3 (>60)
[2023-03-30] MEDS: Nicotine PATCH 21 MG/24 HR PATCH TRANSDERM SCH (08:51)
[2023-03-30] MEDS: Enoxaparin 40 MG/0.4 ML SYR SUBCUT SCH (08:52)
[2023-03-30] MEDS: HYDROcodone/ACETAMIN 5/325 mg TAB PO PRN (10:34)
[2023-03-30] MEDS: Ampicillin ADVAN 2 GM in NS 0.9% 100 ml BAG 100 ML IVPB SCH ×2 (17:34→21:21)
[2023-03-31] MEDS: Ampicillin ADVAN 2 GM in NS 0.9% 100 ml BAG 100 ML IVPB SCH ×6 (01:13→20:16)
[2023-03-31] MEDS: Cefepime 2 GM in Dextrose 2 GM/50 ML BAG IV SCH ×2 (05:19→15:35)
[2023-03-31] MEDS ORDERED: Vancomycin Trough Check NOTE FOLLOW UP ONE (05:30)
[2023-03-31 07:07] LABS: ABS Basophils 0.1 10^3/uL (0.0-0.1); ABS Eosinophils 0.2 10^3/uL (0.0-0.5); ABS Lymphocytes 1.9 10^3/uL (1.0-4.8); ABS Monocytes 0.7 10^3/uL (0.0-1.1); ABS Neutrophils 10.1 10^3/uL (1.5-7.6); ABS Nucleated RBC 0.01 10^3/ul; Eosinophil % 1.6 %; Hematocrit 26.1 % (38-53); Hemoglobin 8.4 g/dL (13.2-16.3); Lymphocyte % 14.5 %; Mean Corpuscular Hemoglobin 20.2 pg (27-33); Mean Corpuscular Hgb Conc 32.3 g/dL (31-36); Mean Corpuscular Volume 62.5 fL (80-97); Mean Platelet Volume 8.3 fL (7.5-11.2); Nucleated Red Blood Cells % 0.1 /100 WBC (0.0-0.4); Platelet Count 530 10^3/uL (150-450); Red Blood Count 4.18 10^6/uL (4.06-5.63); Red Cell Distribution Width 24.8 % (12-17); White Blood Count 13.1 10^3/uL (3.6-10.2)
[2023-03-31 07:20] LABS: Creatinine, Serum 0.86 mg/dL (0.67-1.17); Magnesium 2.1 mg/dL (1.9-2.7); Potassium 4.5 mmol/L (3.5-5.0); eGFR CKD-EPI 116.5 (>60)
[2023-03-31 07:44] LABS: Vancomycin Trough 9.4 mcg/mL
[2023-03-31 07:50] LABS: Corrected Retic Count 0.9 % (0.5-1.5); Hematocrit for Retic CNT 26.2 % (38-53); Immature Retic Fraction 0.59; RBC Retic Count 4.16 10^6/ul (4.06-5.63)
[2023-03-31] MEDS: Nicotine PATCH 21 MG/24 HR PATCH TRANSDERM SCH (09:31)
[2023-03-31] MEDS: Enoxaparin 40 MG/0.4 ML SYR SUBCUT SCH (09:31)
[2023-03-31] MEDS: HYDROcodone/ACETAMIN 5/325 mg TAB PO PRN (18:39)
[2023-04-01] MEDS: Cefepime 2 GM in Dextrose 2 GM/50 ML BAG IV SCH ×3 (00:32→09:48)
[2023-04-01] MEDS: Ampicillin ADVAN 2 GM in NS 0.9% 100 ml BAG 100 ML IVPB SCH ×2 (03:08→08:44)
[2023-04-01] MEDS: HYDROcodone/ACETAMIN 5/325 mg TAB PO PRN ×2 (05:00→12:24)
[2023-04-01 06:25] LABS: Hematocrit 23.7 % (38-53); Hemoglobin 7.9 g/dL (13.2-16.3); Mean Corpuscular Hemoglobin 20.5 pg (27-33); Mean Corpuscular Hgb Conc 33.2 g/dL (31-36); Mean Corpuscular Volume 61.7 fL (80-97); Mean Platelet Volume 8.3 fL (7.5-11.2); Platelet Count 486 10^3/uL (150-450); Red Blood Count 3.84 10^6/uL (4.06-5.63); Red Cell Distribution Width 26.1 % (12-17); White Blood Count 10.5 10^3/uL (3.6-10.2)
[2023-04-01 06:40] LABS: Calcium 8.2 mg/dL (8.6-10.3); Creatinine, Serum 0.91 mg/dL (0.67-1.17); Magnesium 1.9 mg/dL (1.9-2.7); Potassium 4.4 mmol/L (3.5-5.0); eGFR CKD-EPI 113.4 (>60)
[2023-04-01 08:08] LABS: Hypochromasia 2+; Microcytosis 3+
[2023-04-01 08:09] LABS: Target Cells 1+
[2023-04-01 08:10] LABS: ABS Basophils 0.1 10^3/uL (0.0-0.1); ABS Eosinophils 0.3 10^3/uL (0.0-0.5); ABS Monocytes 0.7 10^3/uL (0.0-1.1); ABS Neutrophils 7.5 10^3/uL (1.5-7.6); ABS Nucleated RBC 0.01 10^3/ul; Eosinophil % 2.8 %; Lymphocyte % 18.8 %; Nucleated Red Blood Cells % 0.1 /100 WBC (0.0-0.4)
[2023-04-01] MEDS: Nicotine PATCH 21 MG/24 HR PATCH TRANSDERM SCH (08:44)
[2023-04-01] MEDS: Enoxaparin 40 MG/0.4 ML SYR SUBCUT SCH (08:44)
[2023-04-01] MEDS ORDERED: Piperacillin/Tazobac 3.375 BAG 3.375 GM/100 ML BAG IV ONE (11:22)
[2023-04-01] MEDS ORDERED: Zosyn per Pharmacy NOTE FOLLOW UP SCH (12:00)
[2023-04-01] MEDS: ZOSYN 3.375 GM Q8H per EXTENDED INFUSION IV SCH (18:00)
[2023-04-02] MEDS: ZOSYN 3.375 GM Q8H per EXTENDED INFUSION IV SCH ×3 (02:19→17:56)
[2023-04-02 05:54] LABS: Hematocrit 26.1 % (38-53); Hemoglobin 8.3 g/dL (13.2-16.3); Mean Corpuscular Hemoglobin 19.9 pg (27-33); Mean Corpuscular Volume 62.3 fL (80-97); Mean Platelet Volume 8.3 fL (7.5-11.2); Platelet Count 473 10^3/uL (150-450); Red Blood Count 4.19 10^6/uL (4.06-5.63); Red Cell Distribution Width 25.5 % (12-17); White Blood Count 11.2 10^3/uL (3.6-10.2)
[2023-04-02 06:15] LABS: ABS Basophils 0.1 10^3/uL (0.0-0.1); ABS Eosinophils 0.3 10^3/uL (0.0-0.5); ABS Lymphocytes 1.9 10^3/uL (1.0-4.8); ABS Monocytes 0.5 10^3/uL (0.0-1.1); ABS Neutrophils 8.3 10^3/uL (1.5-7.6); ABS Nucleated RBC 0.01 10^3/ul; Eosinophil % 2.5 %; Lymphocyte % 17.3 %; Nucleated Red Blood Cells % 0.1 /100 WBC (0.0-0.4)
[2023-04-02] MEDS: HYDROcodone/ACETAMIN 5/325 mg TAB PO PRN (08:12)
[2023-04-02] MEDS: Nicotine PATCH 21 MG/24 HR PATCH TRANSDERM SCH (08:13)
[2023-04-02] MEDS: Enoxaparin 40 MG/0.4 ML SYR SUBCUT SCH (08:13)
[2023-04-02] MEDS ORDERED: Iohexol 350 (CONTRAST) 500 ML MDV IV ONE (09:28)
[2023-04-03] MEDS: ZOSYN 3.375 GM Q8H per EXTENDED INFUSION IV SCH ×3 (03:29→18:40)
[2023-04-03] MEDS: Nicotine PATCH 21 MG/24 HR PATCH TRANSDERM SCH (09:08)
[2023-04-03] MEDS: Enoxaparin 40 MG/0.4 ML SYR SUBCUT SCH (09:10)
[2023-04-03] MEDS: HYDROcodone/ACETAMIN 5/325 mg TAB PO PRN ×2 (09:19→21:22)
[2023-04-03 12:38] LABS: Hematocrit 27.9 % (38-53); Mean Corpuscular Hemoglobin 20.2 pg (27-33); Mean Corpuscular Hgb Conc 32.3 g/dL (31-36); Mean Corpuscular Volume 62.5 fL (80-97); Mean Platelet Volume 8.2 fL (7.5-11.2); Platelet Count 517 10^3/uL (150-450); Red Blood Count 4.46 10^6/uL (4.06-5.63); Red Cell Distribution Width 26.7 % (12-17); White Blood Count 10.3 10^3/uL (3.6-10.2)
[2023-04-03 13:25] LABS: ABS Basophils 0.1 10^3/uL (0.0-0.1); ABS Eosinophils 0.3 10^3/uL (0.0-0.5); ABS Lymphocytes 2.3 10^3/uL (1.0-4.8); ABS Monocytes 0.5 10^3/uL (0.0-1.1); ABS Neutrophils 7.1 10^3/uL (1.5-7.6); ABS Nucleated RBC 0.02 10^3/ul; Anisocytosis 2+; Eosinophil % 2.6 %; Hypochromasia 1+; Lymphocyte % 22.8 %; Microcytosis 1+; Nucleated Red Blood Cells % 0.2 /100 WBC (0.0-0.4); Schistocytes 1+; Target Cells 2+
[2023-04-04] MEDS: ZOSYN 3.375 GM Q8H per EXTENDED INFUSION IV SCH ×3 (02:24→18:56)
[2023-04-04 07:11] LABS: Hematocrit 24.7 % (38-53); Hemoglobin 8.2 g/dL (13.2-16.3); Mean Corpuscular Hemoglobin 20.5 pg (27-33); Mean Corpuscular Hgb Conc 33.2 g/dL (31-36); Mean Corpuscular Volume 61.8 fL (80-97); Mean Platelet Volume 8.2 fL (7.5-11.2); Platelet Count 406 10^3/uL (150-450); Red Cell Distribution Width 26.4 % (12-17); White Blood Count 8.5 10^3/uL (3.6-10.2)
[2023-04-04 08:13] LABS: ABS Basophils 0.1 10^3/uL (0.0-0.1); ABS Eosinophils 0.2 10^3/uL (0.0-0.5); ABS Lymphocytes 2.3 10^3/uL (1.0-4.8); ABS Monocytes 0.6 10^3/uL (0.0-1.1); ABS Neutrophils 5.3 10^3/uL (1.5-7.6); ABS Nucleated RBC 0.01 10^3/ul; Eosinophil % 2.8 %; Lymphocyte % 27.3 %; Nucleated Red Blood Cells % 0.1 %/100WBC (0.0-0.8)
[2023-04-04] MEDS: Nicotine PATCH 21 MG/24 HR PATCH TRANSDERM SCH (09:32)
[2023-04-04] MEDS: Enoxaparin 40 MG/0.4 ML SYR SUBCUT SCH (09:32)
[2023-04-04] MEDS: HYDROcodone/ACETAMIN 5/325 mg TAB PO PRN ×2 (12:35→23:20)
[2023-04-05] MEDS: ZOSYN 3.375 GM Q8H per EXTENDED INFUSION IV SCH ×3 (01:51→18:01)
[2023-04-05 06:52] LABS: Hematocrit 26.6 % (38-53); Hemoglobin 8.7 g/dL (13.2-16.3); Mean Corpuscular Hemoglobin 20.5 pg (27-33); Mean Corpuscular Hgb Conc 32.7 g/dL (31-36); Mean Corpuscular Volume 62.6 fL (80-97); Mean Platelet Volume 8.2 fL (7.5-11.2); Platelet Count 440 10^3/uL (150-450); Red Blood Count 4.26 10^6/uL (4.06-5.63); White Blood Count 7.7 10^3/uL (3.6-10.2)
[2023-04-05 07:11] LABS: Calcium 8.7 mg/dL (8.6-10.3); Creatinine, Serum 1.18 mg/dL (0.67-1.17); Potassium 5.5 mmol/L (3.5-5.0)
[2023-04-05] MEDS: Nicotine PATCH 21 MG/24 HR PATCH TRANSDERM SCH (09:03)
[2023-04-05] MEDS: HYDROcodone/ACETAMIN 5/325 mg TAB PO PRN (09:03)
[2023-04-05] MEDS: Enoxaparin 40 MG/0.4 ML SYR SUBCUT SCH (09:04)
[2023-04-05 09:09] LABS: ABS Basophils 0.1 10^3/uL (0.0-0.1); ABS Eosinophils 0.2 10^3/uL (0.0-0.5); ABS Lymphocytes 2.3 10^3/uL (1.0-4.8); ABS Monocytes 0.5 10^3/uL (0.0-1.1); ABS Neutrophils 4.6 10^3/uL (1.5-7.6); ABS Nucleated RBC 0.01 10^3/ul; Anisocytosis 2+; Eosinophil % 2.5 %; Hypochromasia 1+; Lymphocyte % 30.2 %; Microcytosis 3+; Nucleated Red Blood Cells % 0.1 %/100WBC (0.0-0.8); Target Cells 1+
[2023-04-05 10:02] LABS: Urine Benzodiazepine Screen None Detected (None Detect); Urine Buprenorphine Screen None Detected (None Detect); Urine Cannabinoids Screen Presumptive Positive (None Detect); Urine Fentanyl Screen Presumptive Positive (None Detect); Urine Hydrocodone Screen None Detected (None Detect); Urine Opiates Screen Presumptive Positive (None Detect)
[2023-04-05] MEDS ORDERED: NS 0.9% 500 ml BAG 500 ML IV ONE ×2 (10:28→14:29)
[2023-04-05 13:23] LABS: Calcium 8.8 mg/dL (8.6-10.3); Potassium 5.4 mmol/L (3.5-5.0)
[2023-04-05 13:28] LABS: Creatinine, Serum 1.11 mg/dL (0.67-1.17); eGFR CKD-EPI 89.4 (>60)
[2023-04-06] MEDS: ZOSYN 3.375 GM Q8H per EXTENDED INFUSION IV SCH ×3 (02:28→18:17)
[2023-04-06 08:22] LABS: Calcium 9.2 mg/dL (8.6-10.3); Potassium 5.9 mmol/L (3.5-5.0)
[2023-04-06 08:28] LABS: Creatinine, Serum 1.01 mg/dL (0.67-1.17); eGFR CKD-EPI 100.1 (>60)
[2023-04-06] MEDS ORDERED: SODIUM ZIRCONIUM CYCLOSILICATE 10 GM PACKET PO ONE (08:45)
[2023-04-06] MEDS: Enoxaparin 40 MG/0.4 ML SYR SUBCUT SCH (09:08)
[2023-04-06] MEDS: Nicotine PATCH 21 MG/24 HR PATCH TRANSDERM SCH (09:09)
[2023-04-06 09:55] LABS: ABS Basophils 0.1 10^3/uL (0.0-0.1); ABS Eosinophils 0.2 10^3/uL (0.0-0.5); ABS Monocytes 0.5 10^3/uL (0.0-1.1); Eosinophil % 2.6 %; Hematocrit 27.8 % (38-53); Mean Corpuscular Hemoglobin 20.4 pg (27-33); Mean Corpuscular Hgb Conc 32.4 g/dL (31-36); Mean Corpuscular Volume 63.1 fL (80-97); Mean Platelet Volume 8.3 fL (7.5-11.2); Platelet Count 450 10^3/uL (150-450); Red Cell Distribution Width 27.3 % (12-17); White Blood Count 8.8 10^3/uL (3.6-10.2)
[2023-04-06 15:50] LABS: Calcium 9.5 mg/dL (8.6-10.3); Potassium 5.3 mmol/L (3.5-5.0)
[2023-04-06 15:56] LABS: Creatinine, Serum 1.1 mg/dL (0.67-1.17); eGFR CKD-EPI 90.3 (>60)
[2023-04-06] MEDS: HYDROcodone/ACETAMIN 5/325 mg TAB PO PRN (21:00)
[2023-04-07] MEDS: ZOSYN 3.375 GM Q8H per EXTENDED INFUSION IV SCH ×3 (02:17→17:33)
[2023-04-07 04:57] LABS: Calcium 9.4 mg/dL (8.6-10.3); Magnesium 1.8 mg/dL (1.9-2.7); Potassium 5.2 mmol/L (3.5-5.0)
[2023-04-07 05:02] LABS: Creatinine, Serum 1.04 mg/dL (0.67-1.17); eGFR CKD-EPI 96.6 (>60)
[2023-04-07 05:59] LABS: ABS Basophils 0.1 10^3/uL (0.0-0.1); ABS Eosinophils 0.2 10^3/uL (0.0-0.5); ABS Lymphocytes 2.3 10^3/uL (1.0-4.8); ABS Monocytes 0.6 10^3/uL (0.0-1.1); ABS Neutrophils 5.9 10^3/uL (1.5-7.6); Eosinophil % 2.3 %; Hematocrit 28.6 % (38-53); Hemoglobin 9.3 g/dL (13.2-16.3); Lymphocyte % 25.5 %; Mean Corpuscular Hemoglobin 20.3 pg (27-33); Mean Corpuscular Hgb Conc 32.6 g/dL (31-36); Mean Corpuscular Volume 62.1 fL (80-97); Mean Platelet Volume 8.4 fL (7.5-11.2); Platelet Count 407 10^3/uL (150-450); Red Cell Distribution Width 26.4 % (12-17)
[2023-04-07 06:00] LABS: Anisocytosis 3+; Hypochromasia 1+
[2023-04-07] MEDS: Nicotine PATCH 21 MG/24 HR PATCH TRANSDERM SCH (07:34)
[2023-04-07] MEDS: HYDROcodone/ACETAMIN 5/325 mg TAB PO PRN ×2 (07:34→11:26)
[2023-04-07] MEDS: Enoxaparin 40 MG/0.4 ML SYR SUBCUT SCH (07:35)
[2023-04-07] MEDS ORDERED: Magnesium Sulfate 2 gm BAG 2 GM/50 ML BAG IVPB ONE (07:40)
[2023-04-07] MEDS ORDERED: SODIUM ZIRCONIUM CYCLOSILICATE 10 GM PACKET PO ONE (12:00)
[2023-04-07] MEDS ORDERED: Lorazepam PYXIS KEY PRN (14:21)
[2023-04-07] MEDS ORDERED: LORazepam 2 mg VIAL 1 ml IV PUSH ONE (14:21)
[2023-04-07] MEDS ORDERED: LORazepam 2 mg VIAL 1 ml ONE (14:25)
[2023-04-08] MEDS: ZOSYN 3.375 GM Q8H per EXTENDED INFUSION IV SCH ×5 (03:07→22:32)
[2023-04-08 06:31] LABS: Hematocrit 29.9 % (38-53); Mean Corpuscular Hemoglobin 20.7 pg (27-33); Mean Corpuscular Hgb Conc 33.4 g/dL (31-36); Mean Corpuscular Volume 61.9 fL (80-97); Mean Platelet Volume 8.5 fL (7.5-11.2); Platelet Count 463 10^3/uL (150-450); Red Blood Count 4.83 10^6/uL (4.06-5.63); Red Cell Distribution Width 25.5 % (12-17); White Blood Count 10.4 10^3/uL (3.6-10.2)
[2023-04-08 06:45] LABS: ABS Eosinophils 0.1 10^3/uL (0.0-0.5); ABS Lymphocytes 2.1 10^3/uL (1.0-4.8); ABS Monocytes 0.5 10^3/uL (0.0-1.1); ABS Neutrophils 7.6 10^3/uL (1.5-7.6); ABS Nucleated RBC 0.02 10^3/ul; Calcium 9.5 mg/dL (8.6-10.3); Creatinine, Serum 1.13 mg/dL (0.67-1.17); Eosinophil % 1.4 %; Nucleated Red Blood Cells % 0.2 %/100WBC (0.0-0.8); Potassium 4.6 mmol/L (3.5-5.0); eGFR CKD-EPI 87.5 (>60)
[2023-04-08] MEDS: Nicotine PATCH 21 MG/24 HR PATCH TRANSDERM SCH (08:44)
[2023-04-08] MEDS: Enoxaparin 40 MG/0.4 ML SYR SUBCUT SCH (08:45)
[2023-04-08 11:03] LABS: Osmolality Serum 289 mOsm/kg (275-295)
[2023-04-08 11:09] LABS: Urine Osmo 245 mOsm/kg (150-1150)
[2023-04-08 11:11] LABS: Hb A 94.9 % (95.8-98.0); Hb A2 4.7 % (2.0-3.3); Hb F 0.4 % (0.0-0.9)
[2023-04-08 12:06] LABS: Fentanyl Interp Positive.
[2023-04-08] MEDS: NS 0.9% 1000 ml BAG 1,000 ML IV SCH (13:40)
[2023-04-09] MEDS: NS 0.9% 1000 ml BAG 1,000 ML IV SCH (06:08)
[2023-04-09] MEDS: ZOSYN 3.375 GM Q8H per EXTENDED INFUSION IV SCH ×3 (06:37→21:53)
[2023-04-09 06:42] LABS: Hematocrit 30.9 % (38-53); Hemoglobin 10.2 g/dL (13.2-16.3); Mean Corpuscular Hemoglobin 20.6 pg (27-33); Mean Corpuscular Volume 62.6 fL (80-97); Mean Platelet Volume 8.5 fL (7.5-11.2); Platelet Count 418 10^3/uL (150-450); Red Blood Count 4.93 10^6/uL (4.06-5.63); Red Cell Distribution Width 27.6 % (12-17); White Blood Count 9.3 10^3/uL (3.6-10.2)
[2023-04-09 07:34] LABS: ABS Basophils 0.1 10^3/uL (0.0-0.1); ABS Eosinophils 0.2 10^3/uL (0.0-0.5); ABS Lymphocytes 2.8 10^3/uL (1.0-4.8); ABS Monocytes 0.6 10^3/uL (0.0-1.1); ABS Neutrophils 5.7 10^3/uL (1.5-7.6); ABS Nucleated RBC 0.01 10^3/ul; Anisocytosis 2+; Eosinophil % 1.8 %; Hypochromasia 1+; Microcytosis 2+; Nucleated Red Blood Cells % 0.1 %/100WBC (0.0-0.8); Target Cells 1+
[2023-04-09] MEDS: Enoxaparin 40 MG/0.4 ML SYR SUBCUT SCH (08:00)
[2023-04-09] MEDS: Nicotine PATCH 21 MG/24 HR PATCH TRANSDERM SCH (08:01)
[2023-04-09 14:26] LABS: C Reactive Protein 5.67 mg/L (<8.01)
[2023-04-09 17:47] LABS: Hydrocodone, Free 8 ng/mL (10 - 100)
[2023-04-10] MEDS: ZOSYN 3.375 GM Q8H per EXTENDED INFUSION IV SCH ×2 (05:18→13:28)
[2023-04-10 05:37] LABS: ABS Basophils 0.1 10^3/uL (0.0-0.1); ABS Eosinophils 0.2 10^3/uL (0.0-0.5); ABS Lymphocytes 2.4 10^3/uL (1.0-4.8); ABS Monocytes 0.7 10^3/uL (0.0-1.1); ABS Neutrophils 4.4 10^3/uL (1.5-7.6); Eosinophil % 2.8 %; Hematocrit 29.1 % (38-53); Hemoglobin 9.3 g/dL (13.2-16.3); Mean Corpuscular Hgb Conc 32.1 g/dL (31-36); Mean Corpuscular Volume 62.4 fL (80-97); Mean Platelet Volume 8.3 fL (7.5-11.2); Nucleated Red Blood Cells % 0.1 %/100WBC (0.0-0.8); Platelet Count 356 10^3/uL (150-450); Red Blood Count 4.65 10^6/uL (4.06-5.63); Red Cell Distribution Width 25.2 % (12-17); White Blood Count 7.8 10^3/uL (3.6-10.2)
[2023-04-10 06:01] LABS: Blood Urea Nitrogen 39 mg/dL (6-24); CO2 Carbon Dioxide 29 mmol/L (22-32); Calcium 9.2 mg/dL (8.6-10.3); Chloride 103 mmol/L (101-111); Creatinine, Serum 1.44 mg/dL (0.67-1.17); Glucose 81 mg/dL (70-100); Potassium 4.5 mmol/L (3.5-5.0); Sodium 132 mmol/L (135-145); eGFR CKD-EPI 65.4 (>60)
[2023-04-10] MEDS: Nicotine PATCH 21 MG/24 HR PATCH TRANSDERM SCH (09:06)
[2023-04-10] MEDS: Enoxaparin 40 MG/0.4 ML SYR SUBCUT SCH (09:08)
[2023-04-10 14:15] VITALS: BP 133/79
[2023-04-11 10:32] LABS: Hydrocodone Interpretation Positive.; Hydrocodone-by LC-MS/MS 72 ng/mL (Cutoff: 25); Hydromorphone-by LC-MS/MS 40 ng/mL (Cutoff: 25); Norhydrocodone-by LC-MS/MS 172 ng/mL (Cutoff: 25)
== END 2023-04-10 15:10 | disposition home or self-care (01) | DRG 710 ==
LOC: SSU 15:56 → SUATTDRO 15:56 → SSU 17:59
PROVIDERS: ADMIT Internal Medicine; ATTEND Student in an Organized Health Care Education/Training Program